=== PATIENT | female | born 1950 | race Caucasian/White ===

== ENCOUNTER → 2017-04-28 | Outpatient (CLI) | payer OTHER ==
[2017-04-28 15:15] LABS: ALBUMIN 3.5 gm/dl (3.4-5.0); ALT/SGPT 20 U/L (12-78); AST/SGOT 14 U/L (15-37); BLOOD UREA NITROGEN 25 mg/dl (7-18); CALCIUM 9.5 mg/dl (8.5-10.1); CARBON DIOXIDE 30 mmol/L (21-32); CREATININE 0.86 mg/dl (0.60-1.20); GLUCOSE 60 mg/dl (70-99); POTASSIUM 3.5 mmol/L (3.5-5.1); SODIUM 138 mmol/L (136-145)
[2017-04-28 15:25] LABS: ALKALINE PHOSPHATASE 126 U/L (45-117); CHOLESTEROL 130 mg/dl (0-200); LDL CHOLESTEROL CALCULATED 14 mg/dl; TOTAL PROTEIN 7.5 gm/dl (6.4-8.2)
[2017-04-29 05:57] LABS: HEMOGLOBIN A1C 9.8 % (4.5-5.6)
== END | disposition home or self-care (01) ==
LOC: C.LAB1850 12:17
PROVIDERS: ATTEND Internal Medicine Endocrinology, Diabetes & Metabolism
DX: E11.65 Type 2 diabetes mellitus with hyperglycemia (principal)

== ENCOUNTER 2017-07-04 06:14 | Inpatient (IN) | payer OTHER ==
[2017-05-09 11:13] VITALS: BMI 40.0
--- NOTE | 2017-05-09 11:56 | PAT Medication Instructions ---
Service Date May 09, 2017. Current Home Medication List Amlodipine (Norvasc), 5 MG PO QPM Atorvastatin (Lipitor), 10 MG PO for AM Celecoxib (CeleBREX), 100 MG PO QAM Cholecalciferol (Vitamin D3), 5,000 TAB PO QAM Duloxetine Hcl (Cymbalta), 60 MG PO QPM Hydrochlorothiazide (Hydrochlorothiazide), 25 MG PO QAM Ibuprofen (Advil), 800 MG PO PRN Insulin Glargine (Lantus), 40 UNITS SC QAM Insulin Glargine (Lantus), 20 SC QPM Losartan Potassium (Cozaar), 100 MG PO QPM Metformin Hcl (Glucophage), 1,000 MG PO BID Multivitamin (Multivitamin), 1 TAB PO QAM [Humalog], 15 UNITS SC TIDM Medication Instructions For Your Scheduled Surgery - Check with surgeon for instructions: Ibuprofen (Advil), 800 MG PO PRN Celecoxib (CeleBREX), 100 MG PO QAM - Hold the following medications 24 hours prior to surgery: Losartan Potassium (Cozaar), 100 MG PO QPM - Hold the following medications 48 hours prior to surgery: Metformin Hcl (Glucophage), 1,000 MG PO BID - Hold the following medications the morning of surgery: Cholecalciferol (Vitamin D3), 5,000 TAB PO QAMHydrochlorothiazide ( Hydrochlorothiazide), 25 MG PO QAM [Humalog], 15 UNITS SC TIDM Multivitamin (Multivitamin), 1 TAB PO QAM - Take the following medications the morning of surgery with a sip of water: Atorvastatin (Lipitor), 10 MG PO for AM - Take the following medications as scheduled the night before surgery: [Humalog], 15 UNITS SC TIDM Duloxetine Hcl (Cymbalta), 60 MG PO QPM Amlodipine (Norvasc), 5 MG PO QPM - For Insulin Dependent Diabetic patients: Test blood sugar A.M. of surgery. - If Blood sugar greater than 150, take half of your regular dose of: Insulin Glargine (Lantus), take 20 units - If Blood sugar less than 150, do not take any: Insulin Glargine (Lantus ) If you have any questions please call us at [phone] or [phone] or [phone]
[2017-05-09 13:02] LABS: BASO % 0.6 %; BASO ABS # 0.05 K/uL (0-0.2); EOS % 4.2 %; EOS ABS # 0.37 K/uL (0-0.5); HEMATOCRIT 38.1 % (37-47); IG# 0.04 K/uL (0.00-0.02); LYMPH % 18.2 %; LYMPH ABS # 1.59 K/uL (1.2-3.4); MEAN CELL VOLUME 80.2 fL (80-100); MEAN CORPUSCULAR HEMOGLOBIN 25.3 pg (25-34); MEAN CORPUSCULAR HGB CONC 31.5 g/dl (32-36); MEAN PLATELET VOLUME 10.3 fL (7.4-10.4); MONO % 8.9 %; MONO ABS # 0.78 K/uL (0.11-0.59); NEUT % 67.6 %; NEUT ABS # 5.89 K/uL (1.4-6.5); PLATELET COUNT 303 K/uL (130-400); RED CELL DISTRIBUTION WIDTH CV 15.5 % (11.5-14.5); RED CELL DISTRIBUTION WIDTH SD 45.3 fL (36.4-46.3); WHITE BLOOD COUNT 8.72 K/uL (4.8-10.8)
[~2017-07-04] VITALS: Ht 162.6 cm; Wt 105.8 kg
[2017-07-04] VITALS (9 sets, daily range): BP systolic 98–158; BP diastolic 57–72; PULSE 86–107; TEMP 36.5–37.2; O2SAT 93–100; Ht 162.6 cm; Wt 105.8 kg
[~2017-07-04 06:14] MED LIST: AMLO-110 PO; ATOR10TA82 PO; CEFAZOLIN 2000MG IV PUSH 15 ML IV SCH; CHOL1000 PO; CLB/200 PO; DULO60CA44 PO; HUMALOG SC; HYDR25TA5 PO; IBUP-1050 PO; INSDGI SC; LACTATED RINGER'S 1000ML 1,000 ML IV SCH; LOSA1TAB38 PO; METF-384 PO; MULT-506 PO; SECU1INJ INJ
[2017-07-04] MEDS ORDERED: PHENYLEPHRINE 100MCG/ML 5ML SYR IV PRN (06:30)
[2017-07-04] MEDS ORDERED: ATROPINE SULFATE 0.1 MG/ML 5ML SYR IV PRN (06:30)
[2017-07-04] MEDS ORDERED: FENTANYL CITRATE INJ 50 MCG/1 ML 2 ML VIAL IV PRN (06:30)
[2017-07-04] MEDS ORDERED: PROMETHAZINE HCL INJ 12.5 MG in SODIUM CHLORIDE 0.9% 50ML 50 ML IV PRN ×2 (06:30→11:30)
[2017-07-04] MEDS ORDERED: HYDROmorphone INJ 1 MG/ML SYR IV PRN (06:30)
[2017-07-04] MEDS ORDERED: EpHEDrine SULFATE INJ 50 MG/ML AMP IV PRN (06:30)
[2017-07-04] MEDS ORDERED: ONDANSETRON INJ 2 MG/ML 2 ML VIAL IV PRN ×2 (06:30→11:30)
[2017-07-04] MEDS ORDERED: LABETALOL HCL IV 5 MG/ML 20ML IV PRN (06:30)
[2017-07-04] MEDS ORDERED: MIDAZOLAM HCL 1 MG/ML 2ML VIAL ONE (06:43)
[2017-07-04] MEDS ORDERED: FENTANYL CITRATE INJ 50 MCG/1 ML 2 ML VIAL ONE ×5 (06:43→11:19)
[2017-07-04] MEDS ORDERED: ALBUMIN HUMAN 5% 12.5 GM/250 ML VIAL IV ONE (06:49)
[2017-07-04] MEDS ORDERED: BUPIVACAINE/EPINEPHRINE 0.5% MPF 1:200,000 30 ML VIAL ONE (06:58)
[2017-07-04] MEDS ORDERED: BACITRACIN 50000 UNIT VIAL ONE (06:58)
[2017-07-04] MEDS ORDERED: CLINDAMYCIN 600 MG/54 ML D5W IV ONE (07:39)
[2017-07-04] MEDS ORDERED: SCOPOLAMINE 1.5 MG TDSY TD ONE (07:39)
--- NOTE | 2017-07-04 07:40 | History and Physical ---
History & Physical Date Jul 04, 2017. Chief Complaint Back and leg pain History of Present Illness The patient is a 66 year old female with complaints of back and leg pain Additional History Hepatic Disease: No Endocrine Disorder: No Kidney Disease: No Hypertension: Yes Heart Disease: No Bleeding Tendencies: No Infectious Diseases: No Allergies Coded Allergies: Cefadroxil (Verified Allergy, Unknown, ITCHING HIVES, 07/04/17) Loperamide (Verified Allergy, Unknown, ITCHING HIVES, 07/04/17) Oxycodone (Verified Allergy, Unknown, "GOOFY", 07/04/17) Tetracycline (Verified Allergy, Unknown, UNKNOWN, 07/04/17) Home Medications Scheduled Amlodipine (Norvasc), 5 MG PO QPM Atorvastatin (Lipitor), 10 MG PO QAM Celecoxib (CeleBREX), 200 MG PO QAM Cholecalciferol (Vitamin D3), 5,000 TAB PO QAM Duloxetine Hcl (Cymbalta), 90 MG PO QPM Hydrochlorothiazide (Hydrochlorothiazide), 25 MG PO QAM Ibuprofen (Advil), 800 MG PO PRN Insulin Glargine (Lantus), 27 UNITS SC QAM Insulin Glargine (Lantus), 27 SC QPM Losartan Potassium (Cozaar), 100 MG PO QPM Metformin Hcl (Glucophage), 1,000 MG PO BID Multivitamin (Multivitamin), 1 TAB PO QAM Secukinumab (Cosentyx), 1 DOSE INJ MONTHLY [Humalog], UNITS SC TIDM Physical Examination Skin: warm/dry, no rash Eyes: normal inspection, EOMI, sclerae normal ENT: normal ENT inspection, pharynx normal Head: normocephalic, atraumatic Neck: supple, no adenopathy, trachea midline Respiratory/Chest: lungs clear, normal breath sounds, no respiratory distress Cardiovascular: regular rate, rhythm, no edema, no murmur Abdomen / GI: normal bowel sounds, non tender Back: normal inspection Extremities: normal inspection, normal range of motion Neurologic/Psych: no motor/sensory deficits, alert, normal reflexes, oriented x 3 Diagnosis Lumbar spinal stenosis Plan of Treatment L2-S1 decompression and fusion with possible iliac bolts
--- NOTE | 2017-07-04 07:40 | History & Physical Bridge Note ---
H&P Re-Evaluation Bridge Note: I have examined the patient, reviewed the History & Physical and in the interval since the performance of the History & Physical I have noted the following changes of clinical significance: No changes noted
[2017-07-04] MEDS ORDERED: HYDROmorphone INJ 2 MG/ML SYR/VIAL ONE ×4 (08:11→12:05)
[2017-07-04] MEDS ORDERED: EpHEDrine SULFATE 50MG/5ML SYR ONE ×2 (09:07→10:28)
[2017-07-04] MEDS ORDERED: PHENYLEPHRINE 100MCG/ML 5ML SYR ONE ×2 (09:07→10:28)
[2017-07-04] MEDS ORDERED: PHENYLEPHRINE HCL INJ 10 MG/ML VIAL ONE (09:12)
[2017-07-04] MEDS ORDERED: VOLUVEN IN NSS ONE (09:38)
[2017-07-04 09:53] LABS: HEMATOCRIT 25.7 % (37-47); HEMOGLOBIN 8.3 g/dL (12.0-16.0)
[2017-07-04] MEDS ORDERED: LIDOCAINE HCL 2% 2 ML VIAL (20MG/ML) ONE (10:28)
[2017-07-04] MEDS ORDERED: PROPOFOL IV EMULSION 10 MG/ML 20 ML VIAL IV ONE (10:28)
[2017-07-04] MEDS ORDERED: RANITIDINE HCL 25 MG/ML INJ ONE (10:28)
[2017-07-04] MEDS ORDERED: CALCIUM CHLORIDE 10% 10 ML SYR ONE (10:28)
[2017-07-04] MEDS ORDERED: DEXAMETHASONE SOD INJ 4 MG/ML VIAL ONE (10:28)
[2017-07-04] MEDS ORDERED: ONDANSETRON INJ 2 MG/ML 2 ML VIAL ONE ×2 (10:28→11:29)
[2017-07-04] MEDS ORDERED: FLOSEAL HEMOSTATIC MATRIX 10ML TOP ONE (11:10)
[2017-07-04 11:16] LABS: HEMATOCRIT 28.2 % (37-47); HEMOGLOBIN 9.2 g/dL (12.0-16.0)
[2017-07-04] MEDS ORDERED: SODIUM CHLORIDE 0.9% 1000ML 1,000 ML IV SCH (11:24)
--- NOTE | 2017-07-04 11:24 | [facility] Operative Report ---
Operative Report Operative Date Jul 04, 2017. Pre-Operative Diagnosis Lumbar Spinal Stenosis Post-Operative Diagnosis Same Procedure(s) Performed 1. Lumbar decompression medial facetectomies foraminotomies L2-3 L3-4 L4-5 L5-S1. #2 posterior spinal fusion L2-3 L3-4 L4-5 L5-S1. #3 bilateral SI joint fusion. #4 placement posterior segmental instrumentation L2-S1 with bilateral iliac bolts. #5 interbody fusion L3-4. #6 placement peek cage 11 x 26 mm at L3-4. #7 placement of infuse collagen sponge combined with master graft in the posterior lateral gutters and ostium bone graft in the interbody space.. #8 placement locally harvested morselized autograft in the posterior lateral gutters. Surgeon Dr. Neeraj Ladd Television Operator Surgeon(s) Shannan Schwarz PA-C Estimated Blood Loss 1750mL Findings Severe spinal stenosis Description of Procedure Patient was met with preoperatively case discussed all questions addressed. After informed consent obtained patient was taken to the operative suite underwent intubation and placed in a prone position on the Sai table on top of the Dilan frame. All bony prominences were well-padded the eyes inspected to ensure no external pressure placed upon them. This point the lumbar spine was prepped and draped in the normal sterile fashion. Sharp dissection with the assistance of Bovie cautery was performed down to and exposing the lamina and transverse processes of L2 L3-L4-L5 the sacral ala and the bilateral SI joints. From a caudal to cephalad fashion complete laminectomy of L5 L4 L3 and L2 was performed addressing severe lateral recess and foraminal stenosis. Pedicle screws were then placed in L2-L3-L4 L5-S1 levels as well as bilateral iliac bolts. Through a transforaminal approach on the right complete discectomy of L3-4 was performed the endplates created to subcortical bleeding bone and a 11 x 26 mm peek cage filled with osteopenia bone graft tapped in position. Probe size rods were then locked into place in the transverse processes of L2 L3-L4-L5 the sacral ala burred to subcortical bleeding bone. I also burred out to the bilateral SI joints and placed infuse collagen sponge, mass graft and SI joints posterior lateral gutters. Cross-link was locked into position. 15 round SOFIA drain inserted. Incision was then closed with 1 Vicryl in the fascia 2-0 Vicryl subcutaneously and 4-0 Monocryl for fast closure Steri- Strips sterile dressings placed. Patient weakened taken to PACU stable condition. Please note Shannan Shah was present throughout the entire procedure involved in patient positioning complex portions of the surgery and final skin closure. I attest to the content of the Intraoperative Record and any orders documented therein. Any exceptions are noted below.
--- NOTE | 2017-07-04 11:25 | DIAGNOSTIC IMAGING REPORT ---
LUMBAR SPINE, INTRAOPERATIVE FLUOROSCOPY HISTORY: L2-S1 decompression and fusion. FLUOROSCOPY TIME: 34 seconds. FINDINGS: Intraoperative fluoroscopy was provided for the lumbar spine. 4 fluoroscopic spot images were obtained. Posterior decompression and fusion from L2 through S1 with pedicle screws and rods. The hardware appears intact. There are also bilateral sacroiliac bolts. IMPRESSION: Fluoroscopy provided for a L2-S1 posterior decompression and fusion.. Electronically signed by: Víctor Camacho M.D. 07/04/2017 11:23 AM Dictated Date/Time: 07/04/2017 11:21 AM
[2017-07-04] MEDS ORDERED: GLYCOPYRROLATE INJ 0.2 MG/ML VIAL ONE (11:29)
[2017-07-04] MEDS ORDERED: NEOSTIGMINE METHYLSULFATE 1 MG/ML 10ML VIAL ONE (11:29)
[2017-07-04] MEDS ORDERED: ALUMINUM/MAGNESIUM SUSP 30 ML UDC PO PRN (11:30)
[2017-07-04] MEDS ORDERED: BISACODYL 10 MG SUPP PR PRN (11:30)
[2017-07-04] MEDS ORDERED: LORAZEPAM INJ 0.5 MG in SYRINGE 0 ML IV PRN (11:30)
[2017-07-04] MEDS ORDERED: LORAZEPAM 0.5 MG TAB PO PRN (11:30)
[2017-07-04] MEDS ORDERED: DO NOT ADMINISTER PNEUMOCOCCAL VACCINE PRN (11:30)
[2017-07-04] MEDS ORDERED: DO NOT ADMINISTER FLU VACCINE PRN (11:30)
[2017-07-04] MEDS ORDERED: SOD PHOSPHATE/SOD BIPHOSPHATE ENEMA 132 ML BTL PR PRN (11:30)
[2017-07-04] MEDS ORDERED: METOCLOPRAMIDE HCL INJ 5 MG/ML 2 ML VIAL IV PRN (11:30)
[2017-07-04] MEDS ORDERED: NALOXONE HCL 0.4 MG/1 ML VIAL/CARP IV PRN (11:30)
[2017-07-04] MEDS ORDERED: MAGNESIUM HYDROXIDE SUSP 30 ML UDC PO PRN (11:30)
[2017-07-04] MEDS ORDERED: hydrOXYzine HCL 25 MG TAB PO PRN (11:30)
[2017-07-04] MEDS ORDERED: FAMOTIDINE 20 MG TAB PO PRN (11:30)
[2017-07-04] MEDS ORDERED: ACETAMINOPHEN 500 MG TAB PO PRN (11:30)
[2017-07-04] MEDS ORDERED: ACETAMINOPHEN IV 100 ML IV PRN (11:30)
[2017-07-04] MEDS ORDERED: NovoLIN-R INSULIN PER UNIT CHARGE ONE ×2 (12:01→12:54)
[2017-07-04] MEDS ORDERED: HYDROmorphone HCL 0.5MG/ML 50 ML CASSETTE ONE (12:05)
[2017-07-04] MEDS ORDERED: ROCURONIUM BROMIDE 10 MG/ML 5 ML VIAL IV ONE (12:47)
--- NOTE | 2017-07-04 13:53 | Anesthesiology Progress Note ---
Anesthesia Post Op Note Date & Time Jul 04, 2017 at 13:50 Vital Signs Pain Intensity: 3 Vital Signs Past 12 Hours Date Time Temp Pulse Resp B/P (MAP) Pulse Ox O2 Delivery O2 Flow Rate FiO2 07/04/17 13:30 103 12 130/55 (90) 93 Nasal Cannula 4 Oxymask 07/04/17 13:07 105 16 18 13:07 105 16 95 18 13:06 138/55 07/04/17 13:02 103 17 18 13:02 103 17 97 18 13:01 142/55 07/04/17 12:57 105 15 100 18 12:57 104 15 07/04/17 12:56 141/62 07/04/17 12:52 103 16 07/04/17 12:52 103 16 99 18 12:51 138/64 18 12:47 101 13 07/04/17 12:47 101 13 95 07/04/17 12:46 137/63 07/04/17 12:42 104 12 07/04/17 12:42 104 12 98 18 12:41 143/62 18 12:40 36.8 103 16 143/62 (89) 98 Nasal Cannula 10 Oxymask 07/04/17 12:38 102 19 18 12:38 102 19 96 2/18 12:36 145/65 /18 12:33 100 14 18 12:33 103 14 100 18 12:31 146/63 2/18 12:28 100 10 98 18 12:28 100 10 18 12:27 96 8 97 07/04/18 12:27 99 8 /2/18 12:26 147/62 /2/18 12:22 101 15 2/18 12:22 101 15 99 /2/18 12:21 155/71 2/18 12:17 100 12 100 2/18 12:17 100 12 18 12:16 148/68 /2/18 12:13 131/65 /2/18 12:12 102 18 98 2/18 12:12 101 18 4/2/18 12:11 209/ 07/04/17 12:07 103 9 07/04/17 12:07 102 9 99 07/04/17 12:06 191/77 07/04/17 12:02 103 10 100 07/04/17 12:02 103 10 07/04/17 12:01 162/79 07/04/17 11:57 108 30 99 07/04/17 11:57 108 30 07/04/17 11:56 182/79 07/04/17 11:52 97 20 07/04/17 11:52 97 20 100 07/04/17 11:51 154/97 07/04/17 11:48 151/88 07/04/17 11:47 99 20 07/04/17 11:47 99 20 100 07/04/17 11:47 36.8 99 16 151/88 (107) 97 Oxymask 10 07/04/17 06:35 37 86 20 158/72 100 Room Air Notes Mental Status: alert / awake / arousable, participated in evaluation Pt Amnestic to Procedure: Yes Nausea / Vomiting: adequately controlled Pain: adequately controlled Airway Patency, RR, SpO2: stable & adequate BP & HR: stable & adequate Hydration State: stable & adequate Anesthetic Complications: no major complications apparent Pt doing well. VSS. BG elevated even after 12 units of regular insulin. Last BG= 329. Pt asymptomatic. A1c is 9.8%. Spoken to Dr. Frances, hospitalist group, who will be managing patient on the floor regarding her elevated glucose. Pt will be started on insulin drip on the floor.
[2017-07-04] MEDS: HYDROmorphone HCL 0.5MG/ML 50 ML CASSETTE IV PRN ×3 (14:04→23:07)
[2017-07-04] MEDS ORDERED: GLUCOSE 40% GEL 15 GM TUBE PO PRN (14:30)
[2017-07-04] MEDS ORDERED: DEXTROSE 50% 50 ML SYR IV PRN (14:30)
[2017-07-04] MEDS ORDERED: GLUCAGON FOR INJ 1 MG VIAL SQ PRN (14:30)
[2017-07-04] MEDS ORDERED: GLUCOSE 10 TABS/TUBE PO PRN (14:30)
[2017-07-04] MEDS ORDERED: PHARMACY GLYCEMIC MGMT CONSULT PRN (14:50)
[2017-07-04] MEDS ORDERED: INSULIN HUMAN REGULAR IV BOLUS 4 UNIT in SYRINGE 0 ML IV ONE (15:15)
--- NOTE | 2017-07-04 15:33 | Pharmacy Progress Note ---
Glycemic Control Intl Consult Date of Service Jul 04, 2017. Scope Glycemic Pharmacist consulted by Dr Frances on 07/04/17 for glycemic control and to write orders per [facility] inpatient glycemic control protocol Objective Weight (Kilograms): 105.800 Accuchecks BSG (last 24hrs): Test 07/04/17 06:36 07/04/17 11:56 07/04/17 12:50 07/04/17 13:26 Bedside Glucose 134 mg/dl (70-90) 319 mg/dl (70-90) 306 mg/dl (70-90) 320 mg/dl (70-90) Test 07/04/17 13:43 07/04/17 14:52 07/04/17 15:10 Bedside Glucose 329 mg/dl (70-90) 326 mg/dl (70-90) Laboratory Data (last 24hrs) Test 07/04/17 15:10 Recent Pertinent Medications Outpatient Anti-diabetic Regimen: * Lantus 27 units SQ BID * Humalog TIDM; CF 30, CR 10 with goal 100-150 mg/dL * Metformin 1000 mg PO BID Risk Factors for Insulin Resistance: * Steroids: Dexamethasone 12 mg IV in OR * Recent Surgery: POD #0 spinal decompression and fusion * Diet: T2DM Assessment & Plan ASSESSMENT: * 66 yr old T2DM female admitted for spinal decompression and fusion * Severe hyperglycemia both intra-op and post-op. Patient was given a total of 12 units of regular insulin while in OR, however BSG remained > 300. * Discussed with Hospitalist - agree to initiate IV insulin infusion for severe hyperglycemia in post-operative setting where tight glycemic control is desired. Will also continue Lantus (tonight's dose will be based on home basal dose + stress of 2). * I will utilize a fixed carb ratio of 4, rather than the carb ratio calculated by the insulin infusion PLAN FOR INPATIENT GLYCEMIC CONTROL: * Starting IV insulin infusion per severe stress protocol * Goal range: 110 - 140 mg/dL * Holding outpatient oral diabetes medications * Will resume metformin once evidence of adequate oral intake and stable renal function are present * Basal insulin * Lantus 66 units SQ with dinner x 1 * Further Lantus orders to be determined on 07/05 * Bolus nsulin * NOVOLOG per scale ACHS or Q6hrs while NPO * Goal Range: Low 110 mg/dL - High 140 mg/dL * Correction Factor: -- (per drip) mg/dL/unit * Nutritional / Prandial insulin per carb ratio of 1 unit per 4 grams CHO consumed * Please note that the plan above was derived based on current level of insulin resistance and hospital stress. These recommendations are appropriate for inpatient admission only. Plan of care upon discharge will need to be reassessed to avoid potential outpatient hypo/hyperglycemia. Thank you.
[2017-07-04] MEDS: INSULIN REGULAR 250 UNITS in SODIUM CHLORIDE 0.9% 250ML 250 ML IV SCH ×8 (15:41→22:54)
[2017-07-04] MEDS: SODIUM CHLORIDE 0.9% 1000ML 1,000 ML IV SCH ×2 (15:43→23:06)
[2017-07-04 16:11] LABS: CALCIUM 8.2 mg/dl (8.5-10.1); CREATININE 1.15 mg/dl (0.60-1.20); POTASSIUM 4.6 mmol/L (3.5-5.1)
[2017-07-04] MEDS: CLINDAMYCIN IV 600 MG in DEXTROSE 5% 50ML 50 ML IV SCH ×2 (16:22→23:38)
--- NOTE | 2017-07-04 16:43 | History and Physical ---
History General Date of Service: Jul 04, 2017. Stated Complaint: Spinal Stenosis History of Present Illness The patient is a 66 year old female who presents to [facility] with complaints of Spinal Stenosis. The patient's primary care provider is Glenn Hansen II MD. Patient is a 66-year-old female with a history of diabetes type 1, hypertension , dyslipidemia, presenting with Status post lumbar spine decompression by Dr. Ladd on July 04, 2017. Postoperatively, patient was noted to be hyperglycemic in the 300s. She was given regular insulin total of 12 units with no improvement. Apparently the patient was asymptomatic according to anesthesia service. Therefore hospitalist service consulted. On exam, the patient was in her room at 317. She said she is sleepy but otherwise feels fine. Denies nausea vomiting, headache, chest pain, shortness of breath. No other symptoms. Review of Systems Constitutional- no fever; no weight loss Eyes- no acute visual changes ENT- no sinus drainage; no pharyngitis Pulmonary- no cough, no wheezing, no shortness of breath Cardiac- no chest pain, no palpitations, no orthopnea, no dependent edema GI- no nausea, no vomiting, no diarrhea, no melena, no hematochezia - no dysuria, no hematuria Musculoskeletal- no arthralgias, no myalgias Derm- no rashes, no new skin lesions, no changing skin lesions Hematologic- no unusual bruising, no unusual bleeding Lymphatics- no adenopathy Endocrine- no polyuria or polydipsia; no heat or cold intolerance Neuro- no headaches, no focal neurologic symptoms Psych- no anxiety, no depression Family History Noncontributory Social History Smoking Status: Never Smoker Alcohol: occasionally Drug Use: none Marital Status: Housing Status: lives with family Occupation Status: retired History of MDRO History of MDRO: No Allergies Coded Allergies: Cefadroxil (Verified Allergy, Unknown, ITCHING HIVES, 07/04/17) Loperamide (Verified Allergy, Unknown, ITCHING HIVES, 07/04/17) Oxycodone (Verified Allergy, Unknown, "GOOFY", 07/04/17) Tetracycline (Verified Allergy, Unknown, UNKNOWN, 07/04/17) Current Home Medications Reported Home Medications Medications Dose Route/Sig Max Daily Dose Days Date Category Dose Instructions Cosentyx (Secukinumab) 150 Mg/Ml Inj 1 Dose INJ MONTHLY 05/09/17 Reported Vitamin D3 (Cholecalciferol) 1,000 Unit Tab 5,000 Tab PO QAM 90 05/09/17 Reported Multivitamin (Multivitamins) Tab 1 Tab PO QAM 05/09/17 Reported Advil (Ibuprofen) 200 Mg Tab 800 Mg PO PRN 05/09/17 Reported CeleBREX (Celecoxib) 200 Mg Cap 200 Mg PO QAM 05/09/17 Reported [Humalog] Units SC TIDM 05/09/17 Reported sliding scale TID Lantus (Insulin Glargine) 100 Unit/Ml Inj 27 SC QPM 05/09/17 Reported Lantus (Insulin Glargine) 100 Unit/Ml Inj 27 Units SC QAM 05/09/17 Reported Hydrochlorothiazide 25 Mg Tab 25 Mg PO QAM 05/09/17 Reported Cymbalta (Duloxetine Hcl) 60 Mg Cap 90 Mg PO QPM 05/09/17 Reported Cozaar (Losartan Potassium) 100 Mg Tab 100 Mg PO QPM 05/09/17 Reported Lipitor (Atorvastatin Calcium) 10 Mg Tab 10 Mg PO QAM 05/09/17 Reported Norvasc (Amlodipine Besylate) 5 Mg Tab 5 Mg PO QPM 05/09/17 Reported Glucophage (Metformin Hcl) 1,000 Mg Tab 1,000 Mg PO BID 05/09/17 Reported Physical Exam Date Time Temp Pulse Resp B/P (MAP) Pulse Ox O2 Delivery O2 Flow Rate FiO2 07/04/17 16:05 36.7 101 18 123/67 (85) 99 Nasal Cannula 4.0 07/04/17 15:07 37.2 107 19 113/63 (80) 96 Nasal Cannula 4.0 07/04/17 14:30 37.0 102 18 118/62 (80) 99 Nasal Cannula 4.0 07/04/17 14:05 99 Nasal Cannula 4.0 07/04/17 14:05 36.8 101 16 114/57 (76) 99 Nasal Cannula 4.0 07/04/17 14:05 Nasal Cannula 4.0 07/04/17 13:53 103 11 07/04/17 13:53 103 11 94 07/04/17 13:48 105 14 07/04/17 13:48 105 14 97 07/04/17 13:46 133/59 4/2/18 13:43 104 17 96 4/2/18 13:43 104 17 4/2/18 13:38 103 15 4/2/18 13:38 103 15 94 4/2/18 13:36 105/56 4/2/18 13:33 105 16 94 4/2/18 13:33 105 16 4/2/18 13:31 130/55 4/2/18 13:30 103 12 130/55 (90) 93 Nasal Cannula 4 Oxymask 4/2/18 13:28 104 14 96 4/2/18 13:28 104 14 4/2/18 13:26 130/51 4/2/18 13:23 110 14 4/2/18 13:23 109 14 97 4/2/18 13:21 122/57 4/2/18 13:18 102 9 4/2/18 13:18 102 9 95 4/2/18 13:16 117/58 4/2/18 13:13 103 11 4/2/18 13:13 103 11 94 4/2/18 13:11 118/52 4/2/18 13:08 107 12 98 4/2/18 13:08 107 12 4/2/18 13:07 105 16 4/2/18 13:07 105 16 95 4/2/18 13:06 138/55 4/2/18 13:02 103 17 4/2/18 13:02 103 17 97 4/2/18 13:01 142/55 4/2/18 12:57 105 15 100 4/2/18 12:57 104 15 4/2/18 12:56 141/62 4/2/18 12:52 103 16 4/2/18 12:52 103 16 99 4/2/18 12:51 138/64 4/2/18 12:47 101 13 4/2/18 12:47 101 13 95 4/2/18 12:46 137/63 4/2/18 12:42 104 12 4/2/18 12:42 104 12 98 4/2/18 12:41 143/62 4/2/18 12:40 36.8 103 16 143/62 (89) 98 Nasal Cannula 10 Oxymask 4/2/18 12:38 102 19 4/2/18 12:38 102 19 96 4/2/18 12:36 145/65 4/2/18 12:33 100 14 07/04/17 12:33 103 14 100 07/04/17 12:31 146/63 07/04/17 12:28 100 10 98 07/04/17 12:28 100 10 07/04/17 12:27 96 8 97 07/04/17 12:27 99 8 07/04/17 12:26 147/62 07/04/17 12:22 101 15 07/04/17 12:22 101 15 99 07/04/17 12:21 155/71 07/04/17 12:17 100 12 100 07/04/17 12:17 100 12 07/04/17 12:16 148/68 07/04/17 12:13 131/65 07/04/17 12:12 102 18 98 07/04/17 12:12 101 18 07/04/17 12:11 209/ 07/04/17 12:07 103 9 07/04/17 12:07 102 9 99 07/04/17 12:06 191/77 07/04/17 12:02 103 10 100 07/04/17 12:02 103 10 07/04/17 12:01 162/79 07/04/17 11:57 108 30 99 07/04/17 11:57 108 30 07/04/17 11:56 182/79 07/04/17 11:52 97 20 07/04/17 11:52 97 20 100 07/04/17 11:51 154/97 07/04/17 11:48 151/88 07/04/17 11:47 99 20 07/04/17 11:47 99 20 100 07/04/17 11:47 36.8 99 16 151/88 (107) 97 Oxymask 10 07/04/17 06:35 37 86 20 158/72 100 Room Air Weight in Kilograms: 105.800 General-oriented 3, speaking in sentences, not in distress Head- atraumatic Eyes- PERRL, EOMI, anicteric ENT- oropharynx clear Neck- supple, no JVD, no adenopathy, no thyromegaly; carotids +2/2 Lungs- clear to auscultation bilaterally Heart- regular rhythm; no murmur, normal rate Abdomen- normal bowel sounds, soft, nontender, nondistended Extremities- no pretibial edema, no calf tenderness; peripheral pulses intact Neuro- alert, oriented x 3; no gross focal neuro deficits Skin- warm & dry Diagnostics Laboratory Results Results Past 24 Hours Test 07/04/17 06:36 07/04/17 06:51 07/04/17 09:45 07/04/17 11:00 Range/Units Bedside Glucose 134 70-90 mg/dl Hepatitis C Antibody Screen NEG NEG Hemoglobin 8.3 9.2 12.0-16.0 g/dL Hematocrit 25.7 28.2 37-47 % Test 07/04/17 11:56 07/04/17 12:50 07/04/17 13:26 07/04/17 13:43 Range/Units Bedside Glucose 319 306 320 329 70-90 mg/dl Test 07/04/17 14:52 07/04/17 15:20 Range/Units Bedside Glucose 326 70-90 mg/dl Sodium Level 139 136-145 mmol/L Potassium Level 4.6 3.5-5.1 mmol/L Chloride Level 107 98-107 mmol/L Carbon Dioxide Level 22 21-32 mmol/L Anion Gap 10.0 3-11 mmol/L Blood Urea Nitrogen 21 7-18 mg/dl Creatinine 1.15 0.60-1.20 mg/dl Est Creatinine Clear Calc Drug Dose 57.9 ml/min Estimated GFR () 57.8 Estimated GFR (Non- 49.9 BUN/Creatinine Ratio 18.6 10-20 Random Glucose 323 70-99 mg/dl Calcium Level 8.2 8.5-10.1 mg/dl Beta-Hydroxybutyric Acid 0.88 0.2-2.81 mg/dL Impression Assessment and Plan Patient is a 66-year-old female with a history of diabetes type 1, hypertension , dyslipidemia, presenting with Status post lumbar spine decompression by Dr. Ladd on July 04, 2017. Status post lumbar decompression surgery by Dr. Ladd Postop day #0 Positive hyperglycemia, management noted below Pain management and DVT prophylaxis per orthopedic service Given 3 units of packed RBCs at the OR, Thank you for this consultation. Hyperglycemia likely secondary to dexamethasone Type 1 diabetes Usually on metformin 1000 mg twice daily and Lantus 27 units twice daily Blood glucose readings in the 300s postoperatively We will check PRP We will start insulin drip, consult pharmacy glycemic control for assistance Hypertension Usually takes losartan 100 mg daily, amlodipine 5 mg daily, hydrochlorothiazide 25 mg daily Blood pressure marginal Hold blood pressure medications at this time We will order as needed clonidine Reevaluate blood pressure tomorrow, resume amlodipine first if needed We will follow the patient with you during their hospital stay. You can reach a [facility] via pager @ .Thank you for this consultation. Advanced Directives Existing Living Will: No Existing Power of Pot Pusher: No
[2017-07-04] MEDS ORDERED: INSULIN GLARGINE SOLOSTAR 100 UNITS/ML 3 ML PEN SC SCH ×2 (17:15)
[2017-07-04] MEDS: INSULIN ASPART 100 UNITS/ML 3 ML PEN SC SCH ×2 (18:09→21:00)
[2017-07-04] MEDS ORDERED: AMLODIPINE BESYLATE 5 MG TAB PO SCH (21:00)
[2017-07-04] MEDS ORDERED: LOSARTAN POTASSIUM 50 MG TAB PO SCH (21:00)
[2017-07-04] MEDS: DOCUSATE SODIUM/SENNA 50/8.6MG TAB PO SCH (21:35)
[2017-07-04] MEDS: DULOXETINE (CYMBALTA) 30 MG CAP PO SCH (21:36)
[2017-07-05] MEDS: INSULIN REGULAR 250 UNITS in SODIUM CHLORIDE 0.9% 250ML 250 ML IV SCH ×2 (00:54→05:50)
[2017-07-05 03:10] VITALS: BP 118/69; PULSE 96; TEMP 36.5; O2SAT 98
[2017-07-05 05:55] LABS: BASO % 0.1 %; BASO ABS # 0.01 K/uL (0-0.2); HEMATOCRIT 27.8 % (37-47); HEMOGLOBIN 8.8 g/dL (12.0-16.0); IG# 0.08 K/uL (0.00-0.02); LYMPH % 6.2 %; LYMPH ABS # 1.22 K/uL (1.2-3.4); MEAN CELL VOLUME 82.2 fL (80-100); MEAN CORPUSCULAR HGB CONC 31.7 g/dl (32-36); MEAN PLATELET VOLUME 9.3 fL (7.4-10.4); MONO % 11.1 %; MONO ABS # 2.17 K/uL (0.11-0.59); NEUT % 82.2 %; NEUT ABS # 16.07 K/uL (1.4-6.5); PLATELET COUNT 200 K/uL (130-400); RED CELL DISTRIBUTION WIDTH CV 16.6 % (11.5-14.5); RED CELL DISTRIBUTION WIDTH SD 49.8 fL (36.4-46.3); WHITE BLOOD COUNT 19.55 K/uL (4.8-10.8)
[2017-07-05] MEDS ORDERED: DC PCA SCH (06:00)
[2017-07-05] MEDS ORDERED: NALOXONE HCL 0.4 MG/1 ML VIAL/CARP IV PRN (06:00)
[2017-07-05] MEDS ORDERED: HYDROmorphone INJ 2 MG/ML SYR/VIAL IV PRN (06:00)
[2017-07-05] MEDS ORDERED: HYDROmorphone INJ 0.5 MG/0.5 ML SYR IV PRN (06:00)
[2017-07-05 06:30] LABS: CREATININE 1.24 mg/dl (0.60-1.20); POTASSIUM 5.6 mmol/L (3.5-5.1)
[2017-07-05 06:41] VITALS: BP 118/69; PULSE 98; TEMP 36.5; O2SAT 96
--- NOTE | 2017-07-05 07:02 | Clinical Documentation Query ---
CLINICAL DOCUMENTATION QUERY QUERY 1 OF 2 66 yo female admitted with spinal stenosis and s/p fusion. Hgb was 12.0 prior to admission and decreased to 8.3 post surgery. Patient received 3 units of PRBCs. Estimated blood loss from surgery was 1750. In your clinical opinion is this patient being managed for: ( X) Acute blood-loss anemia ( ) Complication of surgery due to post procedural hemorrhage ( ) Not Agree ( ) Other explanation of clinical findings (Please Explain) ( ) Unable to determine (Please Define) ( ) Need to Discuss The medical record reflects the following clinical findings, treatment, and risk factors. Clinical Indicators: As above Treatment: Transfuse 3 units PRBCs, serial H&H Risk Factors: S/P surgical intervention QUERY 2 OF 2 Patient's pre-surgery creatinine level was 0.86 and is currently 1.24. GFR range 70.9 trending down to 45.5. In your clinical opinion is this patient being managed for: ( ) Acute kidney failure ( X) Not Agree ( ) Other explanation of clinical findings (Please Explain) ( ) Unable to determine (Please Define) ( ) Need to Discuss The medical record reflects the following clinical findings, treatment, and risk factors. Clinical Indicators: As above Treatment: IV hydration, serial PRPs Risk Factors: S/P surgical intervention, DM, HTN Please clarify and document your clinical opinion in the progress notes and discharge summary. Terms such as "probable", "suspected", "likely", "questionable", "possible", or "still to be ruled out" are acceptable. IF IN AGREEMENT, YOU MUST DOCUMENT ABOVE DIAGNOSTIC STATEMENT IN DAILY PROGRESS NOTES AND DISCHARGE SUMMARY. This document is not part of the patient's record. Thank You, Juliet Alejandre RN [phone]
[2017-07-05] MEDS: HYDROCODONE/ACETAMIN 5/325MG TAB PO PRN ×2 (08:07→12:41)
[2017-07-05] MEDS: ATORVASTATIN 10 MG TAB PO SCH (08:45)
[2017-07-05] MEDS: INSULIN ASPART 100 UNITS/ML 3 ML PEN SC SCH ×4 (08:48→21:18)
[2017-07-05] MEDS: INSULIN GLARGINE SOLOSTAR 100 UNITS/ML 3 ML PEN SC SCH ×2 (08:49→21:19)
[2017-07-05] MEDS ORDERED: HYDROCHLOROTHIAZIDE 25 MG TAB PO SCH (09:00)
[2017-07-05] MEDS ORDERED: NURSING VERBAL MED ORDER ONE (09:30)
--- NOTE | 2017-07-05 09:49 | Pharmacy Progress Note ---
Pharmacy Glycemic Short Note 2 Date of Service Jul 05, 2017. OUTPATIENT ANTIDIABETIC REGIMEN: * Lantus 27 units SQ BID * Metoformin 1,000mg PO BIDM * Humalog per parameters * CF = 30mg/dl/unit; CR per 1 unit for every 10g CHO consumed ASSESSMENT: * POD#1 s/p Lumbar spinal surgery. Pt with severe hyperglycemia pre-op, intra-op , and post op secondary to omitting basal insulin prior surgery, holding PO antidiabetic agents, and dexamethasone intraop. * Pt received stressed outpatient basal insulin dosing immediately post-op with initiation of IV insulin infusion. Drip ran at 2.2-5.6 units/hr. Hyperglycemia resolved overnight. BSGs down to [id number] over the past few hours. * Pt meets criteria to stop IV insulin infusion and continue with SQ basal bolus monotherapy. * Will restart outpatient dosing since patient has well controlled diabetes on outpatient regimen per recent A1c = 7% 07/05/17 * Likely, the hyperglycemic effects of dexamethasone are diminishing at this point * Pharmacy to continue to titrate insulin doses based on BSG trends * Scr bumped up from 1.15 --> 1.24 mg/dl. Ordinarily would resume metformin POD# 1 when PO intake adequate, but, since Scr increased will hold off on restarting today. PLAN FOR INPATIENT GLYCEMIC CONTROL: * Hold outpatient oral diabetes medications * Basal insulin * Lantus 27 units SQ BID * Bolus insulin * NovoLog per scale ACHS or Q6hrs while NPO * Goal Range: Low 110 mg/dL - High 140 mg/dL * Correction Factor: 15 mg/dL/unit * Nutritional / Prandial insulin per carb ratio of 1 unit per 5 grams CHO consumed PLAN FOR DISCHARGE: * A1c = 7% on 07/05/17 * No changes needed to outpatient regimen. No needs identified as patient: Performs self-care for management of diabetes Knows how to check her BSG Knows what to do for High/Low BS * Essential to maintain BSG <150 mg/dl post-operatively to help prevent post- op complications.
[2017-07-05 10:55] VITALS: BP 101/52; PULSE 65; TEMP 37; O2SAT 91
--- NOTE | 2017-07-05 12:37 | Progress Note ---
Progress Note Date of Service Jul 05, 2017. Progress Note Patient's back pain is controlled. Her leg symptoms are improved. She is tolerating physical therapy. On exam she is sitting up in bed. She has excellent strength testing. She appears very comfortable. Assessment status post multilevel lumbar decompression fusion. Plan at this time we will continue to advance her physical therapy advance her bowel regiment anticipate discharge towards the latter half of this week.
[2017-07-05] MEDS ORDERED: HYDR-5688 PO (12:40)
--- NOTE | 2017-07-05 12:41 | Discharge Instructions ---
Discharge Instructions Date of Service Jul 05, 2017. Admission Reason for Admission: Spinal Stenosis Discharge Discharge Diagnosis / Problem: lumbar stenosis Discharge Goals Goal(s): Improve function Activity Recommendations Activity Limitations: per Instructions/Follow-up section . Instructions / Follow-Up Instructions / Follow-Up ACTIVITY RECOMMENDATIONS: SELF CARE INSTRUCTIONS AFTER THORACIC/LUMBAR FUSIONS 1. You may walk to your tolerance. It is good exercise for your legs and back. Expect some back and intermittent leg aches and pains. 2. You may perform "counter-top" level activities (make a sandwich, gianluca with a project, etc.). 3. No bending or lifting of more than 10 pounds or back twisting of any nature (roll like a log when turning in bed). 4. You may ride in a car for 20-30 minutes at a time. No driving until after your first visit with your doctor. 5. Frequent changes of position and restricting sitting to 30 minutes at a time will help limit the amount of back spasms and stiffness you may experience. 6. You may discontinue the use of ambulatory aids (cane, crutches, etc.) once your strength and confidence allow. 7. You may cabin worker the shower and let water strike your incision when you arrive home at least once daily. Do not take a tub bath, sit in a hot tub or go into a swimming pool until after your first recheck in the office. SPECIAL CARE INSTRUCTIONS: VERY IMPORTANT TO READ AND REVIEW A. Your surgical incision has been closed with a cosmetic suture under the skin that will dissolve in about 6 weeks. In 14 days, you can use a pair of clean scissors and cut the suture that is left outside of the skin at the ends of your incision. 1. The small skin tapes can be removed 7 days after surgery if they have not fallen off by that point. 2. You may keep the wound open to air as much as possible to promote healing after post-op day number 5 unless told otherwise by your doctor. 3. If you think the wound looks like it is becoming infected (redness or worsening drainage) and/or you are experiencing fever, chill or worsening back pain and muscle spasms, contact the office so that we may evaluate you as soon as possible. B. Complications are uncommon, but please contact us if you have any signs or symptoms of: 1. wound infection (fever higher than 102.5 degrees F, redness, separation of wound, drainage, or increasing pain from the incision) 2. blood clots in legs (pain, swelling, redness and warmth in legs) 3. urinary tract infection (fever higher than 102.5 degrees F, burning upon urination or increased frequency of urination) 4. nerve problems (inability to walk on your toes or heels, numbness, loss of bowel or bladder control) 5. any other symptoms that concern you C. Please call the office at if you have any concerns or questions about your operation or recovery. D. No smoking! Smoking drastically decreases the chance of a solid fusion. E. Do not take any anti-inflammatory medications (Indocin, Advil, Motrin, Aspirin, Naprosyn, etc.) as these may inhibit the chance of a solid fusion. Tylenol is okay to take for pain. MANAGING PAIN AFTER SPINAL SURGERY 1. Narcotic medication is intended for short-term use and will be provided for surgical pain. Surgical pain usually lasts for a period of 4-6 weeks. Narcotic medication includes Percocet, Vicodin, Darvocet, Tylenol #3 or Lortab. 2. Longer-term pain is more appropriately treated with non-narcotic medication such as Tylenol ES. 3. Muscle spasm is not appropriately treated with narcotics. Muscle relaxers such as Soma, Flexeril or Skelaxin can be used along with Tylenol ES. 4. Remember that we all live with some "aches and pains". This is not unusual or uncommon after an injury or as we get older. a. Back pain is expected and may include muscle spasms for 4 to 6 weeks after surgery. The pain should gradually improve. If the pain worsens for no apparent reason, please contact the office. b. Intermittent leg pain may also be experienced and should not be concerned about unless it worsens for no apparent reason. If so, please contact the office. 5. We will provide appropriate medication within the normal guidelines of their prescribed use. We will also be very cautious and aware of potential abuse and extended duration of patients' medication needs. a. Pain medications are for your comfort and to assist with sleep and rest so that the tissue can heal. They are not provided in order to return to normal activity and should not be used through the day. To do so or worsening pain at night can result from ongoing tissue damage and development of tolerance to the prescribed medicine. 6. Please allow 2-3 days to process refills. Prescriptions will not be mailed but must be picked up at the office. FOLLOW UP VISIT: Keep your scheduled follow-up appointment. Any questions, please call the office at . Current Hospital Diet Patient's current hospital diet: Diabetes Type 2 Diet Discharge Diet Recommended Diet: Regular Diet Procedures Procedures Performed: L2-S1 Decompression, Posterior Spinal Fusion, Instrumentation, Iliac Bolts, Application of Interbody Cage at L3-L4, Infuse, Application of Osteoamp Pending Studies Studies pending at discharge: no Laboratory Results Hemoglobin A1c Test 07/05/17 05:31 Range/Units Estimated Average Glucose 154 mg/dl Hemoglobin A1c 7.0 H 4.5-5.6 % Lipid Panel Test 04/28/17 12:29 Range/Units Triglycerides Level 69 0-150 mg/dl Cholesterol Level 130 0-200 mg/dl HDL Cholesterol 102 mg/dl Cholesterol/HDL Ratio 1.3 LDL Cholesterol, Calculated 14 mg/dl Medical Emergencies . Who to Call and When: Medical Emergencies: If at any time you feel your situation is an emergency, please call 911 immediately. . Non-Emergent Contact Non-Emergency issues call your: Primary Care Provider . "Provider Documentation" section prepared by Neeraj Ladd. .
[2017-07-05 15:16] VITALS: BP 136/67; PULSE 109; TEMP 36.6; O2SAT 95
[2017-07-05] MEDS ORDERED: NURSING DECISION MEDICATION ORDER SCH (16:00)
[2017-07-05] MEDS ORDERED: COUGH DROP (SUGAR FREE) LOZ 24 LOZ/1 BOX LOZ PRN (16:45)
--- NOTE | 2017-07-05 18:41 | Progress Note ---
Medicine Progress Note Date & Time of Visit: Jul 05, 2017 at 18:34. Subjective seen resting in bed, comfortable states she feels ok overall back pain increased today, but controlled well with medications no chest pain, dyspnea, palpitations, dizziness no other symptoms Objective Last 8 Hrs Date Time Temp Pulse Resp B/P (MAP) Pulse Ox O2 Delivery O2 Flow Rate FiO2 07/05/17 15:21 Room Air 07/05/17 15:16 36.6 109 19 136/67 (90) 95 Room Air 07/05/17 10:55 37.0 65 16 101/52 (68) 91 Room Air Physical Exam: General- oriented x 3, not in distress, speaks in sentences with no effort Eyes anicteric ENT- oropharynx clear Neck- supple, no JVD Lungs- clear breath sounds bilaterally Heart- regular rhythm; no murmur, normal rate Abdomen- normal bowel sounds, soft, nontender Extremities- no pretibial edema, no calf tenderness; peripheral pulses intact Neuro- alert, oriented x 3; no gross focal deficits Skin- warm & dry Laboratory Results: Last 24 Hours Test 07/04/17 19:06 07/04/17 20:16 07/04/17 21:21 07/04/17 22:47 Bedside Glucose 204 mg/dl 191 mg/dl 152 mg/dl 124 mg/dl Test 07/04/17 23:49 07/05/17 00:50 07/05/17 01:51 07/05/17 02:50 Bedside Glucose 96 mg/dl 114 mg/dl 120 mg/dl 121 mg/dl Test 07/05/17 03:46 07/05/17 05:31 07/05/17 05:48 07/05/17 06:44 Bedside Glucose 112 mg/dl 98 mg/dl 92 mg/dl White Blood Count 19.55 K/uL Red Blood Count 3.38 M/uL Hemoglobin 8.8 g/dL Hematocrit 27.8 % Mean Corpuscular Volume 82.2 fL Mean Corpuscular Hemoglobin 26.0 pg Mean Corpuscular Hemoglobin Concent 31.7 g/dl Platelet Count 200 K/uL Mean Platelet Volume 9.3 fL Neutrophils (%) (Auto) 82.2 % Lymphocytes (%) (Auto) 6.2 % Monocytes (%) (Auto) 11.1 % Eosinophils (%) (Auto) 0.0 % Basophils (%) (Auto) 0.1 % Neutrophils # (Auto) 16.07 K/uL Lymphocytes # (Auto) 1.22 K/uL Monocytes # (Auto) 2.17 K/uL Eosinophils # (Auto) 0.00 K/uL Basophils # (Auto) 0.01 K/uL RDW Standard Deviation 49.8 fL RDW Coefficient of Variation 16.6 % Immature Granulocyte % (Auto) 0.4 % Immature Granulocyte # (Auto) 0.08 K/uL Red Blood Cell Morphology Unremarkable Sodium Level 136 mmol/L Potassium Level 5.6 mmol/L Chloride Level 107 mmol/L Carbon Dioxide Level 25 mmol/L Anion Gap 4.0 mmol/L Blood Urea Nitrogen 27 mg/dl Creatinine 1.24 mg/dl Est Creatinine Clear Calc Drug Dose 53.7 ml/min Estimated GFR () 52.8 Estimated GFR (Non- 45.5 BUN/Creatinine Ratio 21.8 Random Glucose 95 mg/dl Estimated Average Glucose 154 mg/dl Hemoglobin A1c 7.0 % Calcium Level 8.0 mg/dl Test 07/05/17 08:14 07/05/17 09:55 07/05/17 11:58 07/05/17 17:20 Bedside Glucose 94 mg/dl 163 mg/dl 102 mg/dl Potassium Level 4.8 mmol/L Assessment & Plan Patient is a 66-year-old female with a history of diabetes type 1, hypertension , dyslipidemia, presenting with Status post lumbar spine decompression by Dr. Ladd on July 04, 2017. Status post lumbar decompression surgery by Dr. Ladd Postop day #1 stable overall Pain management and DVT prophylaxis per orthopedic service Hyperglycemia likely secondary to dexamethasone, Resolved Type 1 diabetes Usually on metformin 1000 mg twice daily and Lantus 27 units twice daily Insulin drip discontinued now on Lantus and ISS monitor Hypertension Usually takes losartan 100 mg daily, amlodipine 5 mg daily, hydrochlorothiazide 25 mg daily will resume Amlodipine today hold Losartan and HCTZ as patient's crea is mildly elevated and to prevent hypotension Anemia, likely from Acute Blood Loss from Surgery already given 3 units pRBC Hg stable at ~8-9 monitor We will follow the patient with you during their hospital stay. You can reach a member of the [facility]ist Team 25/10 via pager @ .Thank you for this consultation. Current Inpatient Medications: Current Inpatient Medications Medications (Trade) Dose Ordered Sig/Tamar Route Start Time Stop Time Status Last Admin Dose Admin Promethazine HCl 12.5 mg/Sodium Chloride 50.5 ml @ 202 mls/hr Q6H PRN IV 07/04/17 11:30 08/03/17 11:29 Ondansetron HCl (Zofran Inj) 4 mg Q6H PRN IV 07/04/17 11:30 08/03/17 11:29 Metoclopramide HCl (Reglan Inj) 10 mg Q6H PRN IV 07/04/17 11:30 08/03/17 11:29 Lorazepam (Ativan Tab) 0.5 mg Q8H PRN PO 07/04/17 11:30 08/03/17 11:29 Lorazepam 0.5 mg/ Syringe 0.25 ml @ 1 mls/min Q8H PRN IV 07/04/17 11:30 08/03/17 11:29 Pneumococcal Polysaccharide Vaccine 1 ea PRN PRN N/A 07/04/17 11:30 08/03/17 11:29 Influenza Virus Vacc Triv Types A&B 1 ea PRN PRN N/A 07/04/17 11:30 08/03/17 11:29 Polyethylene (Miralax Powder Packet) 17 gm Q6 PO 07/06/17 06:00 08/05/17 05:59 Bisacodyl (Dulcolax Supp) 10 mg DAILY PRN NE 07/04/17 11:30 08/03/17 11:29 Magnesium Hydroxide (Milk Of Magnesia Susp) 30 ml DAILY PRN PO 07/04/17 11:30 08/03/17 11:29 Hydromorphone HCl (Dilaudid Inj) 0.5 mg Q3H PRN IV 07/05/17 06:00 07/19/17 05:59 07/05/17 14:48 0.5 MG Acetaminophen/ Hydrocodone Bitart ([place] 5/325 Tab) 1-2 tabs prn moder... Q4H PRN PO 07/05/17 06:00 07/19/17 05:59 07/05/17 12:41 2 TAB Acetaminophen (Tylenol Tab) 1,000 mg Q8H PRN PO 07/04/17 11:30 08/03/17 11:29 Acetaminophen 100 ml @ 400 mls/hr Q8H PRN IV 07/04/17 11:30 08/03/17 11:29 Naloxone HCl (Narcan Inj) 0.1 mg Q5M PRN IV 07/05/17 06:00 08/04/17 05:59 Senna/Docusate Sodium (Senokot S Tab) 2 tab HS PO 07/04/17 21:00 08/03/17 20:59 07/04/17 21:35 2 TAB Sodium Biphosphate/ Sodium Phosphate (Fleet Enema) 132 ml ONE PRN NE 07/04/17 11:30 08/03/17 11:29 Hydroxyzine HCl (Vistaril Tab) 25 mg Q8H PRN PO 07/04/17 11:30 08/03/17 11:29 Al Hydroxide/Mg Hydroxide (Maalox Susp) 30 ml Q6H PRN PO 07/04/17 11:30 08/03/17 11:29 Famotidine (Pepcid Tab) 20 mg Q12 PRN PO 07/04/17 11:30 08/03/17 11:29 Diphenhydramine HCl (Benadryl Cap) 25 mg Q6H PRN PO 07/04/17 11:30 08/03/17 11:29 Atorvastatin Calcium (Lipitor Tab) 10 mg QAM PO 07/05/17 09:00 08/04/17 08:59 07/05/17 08:45 10 MG Duloxetine HCl (Cymbalta Cap) 90 mg QPM PO 07/04/17 21:00 08/03/17 20:59 07/04/17 21:36 90 MG Hydromorphone HCl (Dilaudid Inj) 2 mg Q3H PRN IV 07/05/17 06:00 07/19/17 05:59 Glucose (Glucose 40% Gel) 15-30 GRAMS 15 GRAMS... UD PRN PO 07/04/17 14:30 08/03/17 14:29 Glucose (Glucose Chew Tab) 4-8 Tablets 4 Tabl... UD PRN PO 07/04/17 14:30 08/03/17 14:29 Dextrose (Dextrose 50% 50ML Syringe) 25-50ML OF 50% DW IV FOR... UD PRN IV 07/04/17 14:30 08/03/17 14:29 Glucagon (Glucagon Inj) 1 mg UD PRN SQ 07/04/17 14:30 08/03/17 14:29 Miscellaneous Information (Consult Glycemic Management Pharmacy) 1 ea UD PRN N/A 07/04/17 14:50 08/03/17 14:49 Insulin Aspart (novoLOG ASPART) SLIDING SCALE ACHS SC 07/05/17 08:00 08/04/17 07:59 07/05/17 18:04 3 UNITS Insulin Glargine (Lantus Solostar Pen) 27 units BID SC 07/05/17 09:00 08/04/17 08:59 07/05/17 08:49 27 UNITS Menthol (Nice Lio) 1 lio PRN PRN LIO 07/05/17 16:45 08/04/17 16:44 07/05/17 18:01 1 LIO
[2017-07-05 21:10] VITALS: BP 156/71; O2SAT 98
[2017-07-05] MEDS: AMLODIPINE BESYLATE 5 MG TAB PO SCH (21:14)
[2017-07-05] MEDS: DOCUSATE SODIUM/SENNA 50/8.6MG TAB PO SCH (21:40)
[2017-07-05] MEDS: DULOXETINE (CYMBALTA) 30 MG CAP PO SCH (21:40)
[2017-07-05 23:20] VITALS: BP 128/71; PULSE 116; TEMP 37.2; O2SAT 95
[2017-07-06] VITALS (7 sets, daily range): BP systolic 126–158; BP diastolic 63–72; PULSE 97–116; TEMP 36.8–37.3; O2SAT 83–100
[2017-07-06] MEDS: POLYETHYLENE (MIRALAX) 17 GM PACK PO SCH ×4 (05:02→23:31)
[2017-07-06] MEDS: HYDROCODONE/ACETAMIN 5/325MG TAB PO PRN ×2 (06:33→12:24)
[2017-07-06 08:23] LABS: BASO % 0.2 %; BASO ABS # 0.03 K/uL (0-0.2); EOS % 1.3 %; EOS ABS # 0.22 K/uL (0-0.5); HEMATOCRIT 25.2 % (37-47); HEMOGLOBIN 8.4 g/dL (12.0-16.0); LYMPH ABS # 1.36 K/uL (1.2-3.4); MEAN CELL VOLUME 81.3 fL (80-100); MEAN CORPUSCULAR HEMOGLOBIN 27.1 pg (25-34); MEAN CORPUSCULAR HGB CONC 33.3 g/dl (32-36); MEAN PLATELET VOLUME 9.4 fL (7.4-10.4); MONO % 13.8 %; MONO ABS # 2.33 K/uL (0.11-0.59); NEUT % 76.1 %; NEUT ABS # 12.88 K/uL (1.4-6.5); PLATELET COUNT 176 K/uL (130-400); RED CELL DISTRIBUTION WIDTH CV 17.2 % (11.5-14.5); RED CELL DISTRIBUTION WIDTH SD 51.2 fL (36.4-46.3); WHITE BLOOD COUNT 16.92 K/uL (4.8-10.8)
[2017-07-06] MEDS: INSULIN ASPART 100 UNITS/ML 3 ML PEN SC SCH ×4 (08:40→20:55)
[2017-07-06] MEDS: INSULIN GLARGINE SOLOSTAR 100 UNITS/ML 3 ML PEN SC SCH ×2 (08:42→21:31)
[2017-07-06] MEDS: ATORVASTATIN 10 MG TAB PO SCH (08:47)
[2017-07-06 08:52] LABS: CALCIUM 8.2 mg/dl (8.5-10.1); CREATININE 0.93 mg/dl (0.60-1.20); POTASSIUM 4.5 mmol/L (3.5-5.1)
--- NOTE | 2017-07-06 10:14 | Pharmacy Progress Note ---
Pharmacy Glycemic Short Note 2 Date of Service Jul 06, 2017. OUTPATIENT ANTIDIABETIC REGIMEN: * Lantus 27 units SQ BID * Metoformin 1,000mg PO BIDM * Humalog per parameters * CF = 30mg/dl/unit; CR per 1 unit for every 10g CHO consumed ASSESSMENT: * POD#2 s/p Lumbar spinal surgery. Pt with severe hyperglycemia pre-op, intra-op , and post op secondary to omitting basal insulin prior surgery, holding PO antidiabetic agents, and dexamethasone intraop. * Good glycemic control over the past 24 hours: BSGs 92, 163, 102, 162 Patient received a total of 78 units of SQ insulin on 07/05: * 54 units of basal (home dose) * 24 units of bolus * Fasting BSG of 217 is above goal. Of note, this was not a true fasting. I spoke with RN who confirmed that patient drank orange juice prior to BSG check. Fasting BSG was at goal yesterday and patient is on home basal dose, therefore no changes today. * Post-prandial BSGs are at/near goal. I anticipate improvement today since effect of dexamethasone has worn off, therefore I will only make changes to bolus parameters if they remain elevated today. * Patient is tolerating diet and Scr has improved -> resume metformin PLAN FOR INPATIENT GLYCEMIC CONTROL: * Resume metformin 1000 mg PO BID * Basal insulin - no change * Lantus 27 units SQ BID * Bolus insulin - no change * NovoLog per scale ACHS or Q6hrs while NPO * Goal Range: Low 110 mg/dL - High 140 mg/dL * Correction Factor: 15 mg/dL/unit * Nutritional / Prandial insulin per carb ratio of 1 unit per 5 grams CHO consumed PLAN FOR DISCHARGE: * A1c = 7% on 07/05/17 * No changes needed to outpatient regimen. No needs identified as patient: Performs self-care for management of diabetes Knows how to check her BSG Knows what to do for High/Low BS * Essential to maintain BSG <150 mg/dl post-operatively to help prevent post- op complications.
[2017-07-06] MEDS: METFORMIN HCL 500 MG TAB PO SCH ×2 (12:37→18:27)
--- NOTE | 2017-07-06 14:26 | Progress Note ---
Progress Note Date of Service Jul 06, 2017. Progress Note Patient's back pain is controlled. Leg symptoms are improved. On exam vital signs are stable. She is sitting in the chair at the bedside. His excellent strength testing. Assessment status post multilevel lumbar decompression fusion. Plan at this time will continue to advance her physical therapy. Monitor SOFIA output. Anticipate possible home tomorrow.
--- NOTE | 2017-07-06 18:24 | Progress Note ---
Medicine Progress Note Date & Time of Visit: Jul 06, 2017 at 18:21. Subjective Seen sitting up in bed, just finished her dinner Comfortable States she ambulated today, no problems Feeling better overall No chest pain shortness of breath palpitations dizziness nausea Denies other symptoms Objective Last 8 Hrs Date Time Temp Pulse Resp B/P (MAP) Pulse Ox O2 Delivery O2 Flow Rate FiO2 07/06/17 15:25 Room Air 07/06/17 15:00 37.2 97 18 126/66 (86) 92 Room Air 07/06/17 11:51 37.0 103 20 146/68 (94) 92 Room Air Physical Exam: General- oriented x 3, not in distress, speaks in sentences with no effort Neck- no JVD Lungs- clear breath sounds bilaterally, no rales wheezes Heart- regular rhythm; no murmur, normal rate Abdomen- normal bowel sounds, soft, nontender Extremities- no pretibial edema, no calf tenderness Neuro- alert, oriented x 3; no gross focal deficits Skin- warm & dry Laboratory Results: Last 24 Hours Test 07/05/17 20:44 07/06/17 06:14 07/06/17 08:07 07/06/17 12:00 Bedside Glucose 162 mg/dl 217 mg/dl 143 mg/dl White Blood Count 16.92 K/uL Red Blood Count 3.10 M/uL Hemoglobin 8.4 g/dL Hematocrit 25.2 % Mean Corpuscular Volume 81.3 fL Mean Corpuscular Hemoglobin 27.1 pg Mean Corpuscular Hemoglobin Concent 33.3 g/dl Platelet Count 176 K/uL Mean Platelet Volume 9.4 fL Neutrophils (%) (Auto) 76.1 % Lymphocytes (%) (Auto) 8.0 % Monocytes (%) (Auto) 13.8 % Eosinophils (%) (Auto) 1.3 % Basophils (%) (Auto) 0.2 % Neutrophils # (Auto) 12.88 K/uL Lymphocytes # (Auto) 1.36 K/uL Monocytes # (Auto) 2.33 K/uL Eosinophils # (Auto) 0.22 K/uL Basophils # (Auto) 0.03 K/uL RDW Standard Deviation 51.2 fL RDW Coefficient of Variation 17.2 % Immature Granulocyte % (Auto) 0.6 % Immature Granulocyte # (Auto) 0.10 K/uL Large Platelets 1+ Basophilic Stippling 1+ Sodium Level 133 mmol/L Potassium Level 4.5 mmol/L Chloride Level 102 mmol/L Carbon Dioxide Level 27 mmol/L Anion Gap 4.0 mmol/L Blood Urea Nitrogen 29 mg/dl Creatinine 0.93 mg/dl Est Creatinine Clear Calc Drug Dose 71.6 ml/min Estimated GFR () 74.7 Estimated GFR (Non- 64.5 BUN/Creatinine Ratio 31.3 Random Glucose 200 mg/dl Calcium Level 8.2 mg/dl Test 07/06/17 16:59 Bedside Glucose 133 mg/dl Assessment & Plan Patient is a 66-year-old female with a history of diabetes type 1, hypertension , dyslipidemia, presenting with Status post lumbar spine decompression by Dr. Ladd on July 04, 2017. Status post lumbar decompression surgery by Dr. Ladd Postop day #2 Remained stable Pain management and DVT prophylaxis per orthopedic service Hyperglycemia likely secondary to dexamethasone, Resolved Type 1 diabetes Usually on metformin 1000 mg twice daily and Lantus 27 units twice daily Insulin drip discontinued now on Lantus and ISS Blood glucose levels within acceptable range monitor Hypertension Usually takes losartan 100 mg daily, amlodipine 5 mg daily, hydrochlorothiazide 25 mg daily BP stable overall Amlodipine resumed Resume losartan this evening Hold hydrochlorothiazide to prevent dehydration Monitor Anemia, likely from Acute Blood Loss from Surgery already given 3 units pRBC Hg stable at ~8-9 Asymptomatic monitor transfuse as needed for hemoglobin less than 8 or if patient symptomatic We will follow the patient with you during their hospital stay. You can reach a member of the [facility] Hospitalist Team 25/10 via pager @ .Thank you for this consultation. Current Inpatient Medications: Current Inpatient Medications Medications (Trade) Dose Ordered Sig/Tamar Route Start Time Stop Time Status Last Admin Dose Admin Promethazine HCl 12.5 mg/Sodium Chloride 50.5 ml @ 202 mls/hr Q6H PRN IV 07/04/17 11:30 08/03/17 11:29 Ondansetron HCl (Zofran Inj) 4 mg Q6H PRN IV 07/04/17 11:30 08/03/17 11:29 Metoclopramide HCl (Reglan Inj) 10 mg Q6H PRN IV 07/04/17 11:30 08/03/17 11:29 Lorazepam (Ativan Tab) 0.5 mg Q8H PRN PO 07/04/17 11:30 08/03/17 11:29 07/06/17 08:48 0.5 MG Lorazepam 0.5 mg/ Syringe 0.25 ml @ 1 mls/min Q8H PRN IV 07/04/17 11:30 08/03/17 11:29 Pneumococcal Polysaccharide Vaccine 1 ea PRN PRN N/A 07/04/17 11:30 08/03/17 11:29 Influenza Virus Vacc Triv Types A&B 1 ea PRN PRN N/A 07/04/17 11:30 08/03/17 11:29 Polyethylene (Miralax Powder Packet) 17 gm Q6 PO 07/06/17 06:00 08/05/17 05:59 07/06/17 12:35 17 GM Bisacodyl (Dulcolax Supp) 10 mg DAILY PRN MD 07/04/17 11:30 08/03/17 11:29 Magnesium Hydroxide (Milk Of Magnesia Susp) 30 ml DAILY PRN PO 07/04/17 11:30 08/03/17 11:29 Hydromorphone HCl (Dilaudid Inj) 0.5 mg Q3H PRN IV 07/05/17 06:00 07/19/17 05:59 07/05/17 14:48 0.5 MG Acetaminophen/ Hydrocodone Bitart (Cumming 5/325 Tab) 1-2 tabs prn moder... Q4H PRN PO 07/05/17 06:00 07/19/17 05:59 07/06/17 12:24 2 TAB Acetaminophen (Tylenol Tab) 1,000 mg Q8H PRN PO 07/04/17 11:30 08/03/17 11:29 Acetaminophen 100 ml @ 400 mls/hr Q8H PRN IV 07/04/17 11:30 08/03/17 11:29 Naloxone HCl (Narcan Inj) 0.1 mg Q5M PRN IV 07/05/17 06:00 08/04/17 05:59 Senna/Docusate Sodium (Senokot S Tab) 2 tab HS PO 07/04/17 21:00 08/03/17 20:59 07/05/17 21:40 2 TAB Sodium Biphosphate/ Sodium Phosphate (Fleet Enema) 132 ml ONE PRN MD 07/04/17 11:30 08/03/17 11:29 Hydroxyzine HCl (Vistaril Tab) 25 mg Q8H PRN PO 07/04/17 11:30 08/03/17 11:29 Al Hydroxide/Mg Hydroxide (Maalox Susp) 30 ml Q6H PRN PO 07/04/17 11:30 08/03/17 11:29 Famotidine (Pepcid Tab) 20 mg Q12 PRN PO 07/04/17 11:30 08/03/17 11:29 Diphenhydramine HCl (Benadryl Cap) 25 mg Q6H PRN PO 07/04/17 11:30 08/03/17 11:29 Atorvastatin Calcium (Lipitor Tab) 10 mg QAM PO 07/05/17 09:00 08/04/17 08:59 07/06/17 08:47 10 MG Duloxetine HCl (Cymbalta Cap) 90 mg QPM PO 07/04/17 21:00 08/03/17 20:59 07/05/17 21:40 90 MG Hydromorphone HCl (Dilaudid Inj) 2 mg Q3H PRN IV 07/05/17 06:00 07/19/17 05:59 Glucose (Glucose 40% Gel) 15-30 GRAMS 15 GRAMS... UD PRN PO 07/04/17 14:30 08/03/17 14:29 Glucose (Glucose Chew Tab) 4-8 Tablets 4 Tabl... UD PRN PO 07/04/17 14:30 08/03/17 14:29 Dextrose (Dextrose 50% 50ML Syringe) 25-50ML OF 50% DW IV FOR... UD PRN IV 07/04/17 14:30 08/03/17 14:29 Glucagon (Glucagon Inj) 1 mg UD PRN SQ 07/04/17 14:30 08/03/17 14:29 Miscellaneous Information (Consult Glycemic Management Pharmacy) 1 ea UD PRN N/A 07/04/17 14:50 08/03/17 14:49 Insulin Aspart (novoLOG ASPART) SLIDING SCALE ACHS SC 07/05/17 08:00 08/04/17 07:59 07/06/17 12:44 6 UNITS Insulin Glargine (Lantus Solostar Pen) 27 units BID SC 07/05/17 09:00 08/04/17 08:59 07/06/17 08:42 27 UNITS Menthol (Nice Lio) 1 lio PRN PRN LIO 07/05/17 16:45 08/04/17 16:44 07/05/17 18:01 1 LIO Amlodipine Besylate (Norvasc Tab) 5 mg HS PO 07/05/17 21:00 08/04/17 20:59 07/05/17 21:14 5 MG Losartan Potassium (coZAAR TAB) 50 mg HS PO 07/06/17 21:00 08/05/17 20:59 Metformin HCl (Glucophage Tab) 1,000 mg BIDM PO 07/06/17 11:00 08/05/17 10:59 07/06/17 12:37 1,000 MG
[2017-07-06] MEDS ORDERED: LOSARTAN POTASSIUM 50 MG TAB PO SCH (21:00)
[2017-07-06] MEDS: DULOXETINE (CYMBALTA) 30 MG CAP PO SCH (21:27)
[2017-07-06] MEDS: DOCUSATE SODIUM/SENNA 50/8.6MG TAB PO SCH (21:27)
[2017-07-06] MEDS: AMLODIPINE BESYLATE 5 MG TAB PO SCH (21:28)
[2017-07-07] MEDS: HYDROCODONE/ACETAMIN 5/325MG TAB PO PRN ×2 (04:09→08:27)
[2017-07-07] MEDS: POLYETHYLENE (MIRALAX) 17 GM PACK PO SCH (05:35)
[2017-07-07 06:42] VITALS: BP 135/73; PULSE 101; TEMP 37.2; O2SAT 91
[2017-07-07] MEDS: ATORVASTATIN 10 MG TAB PO SCH (07:35)
[2017-07-07] MEDS: METFORMIN HCL 500 MG TAB PO SCH (07:35)
[2017-07-07] MEDS: INSULIN ASPART 100 UNITS/ML 3 ML PEN SC SCH (07:46)
[2017-07-07] MEDS: INSULIN GLARGINE SOLOSTAR 100 UNITS/ML 3 ML PEN SC SCH (07:47)
--- NOTE | 2017-07-07 09:25 | Pharmacy Progress Note ---
Pharmacy Glycemic Short Note 2 Date of Service Jul 07, 2017. OUTPATIENT ANTIDIABETIC REGIMEN: * Lantus 27 units SQ BID * Metoformin 1,000mg PO BIDM * Humalog per parameters * CF = 30mg/dl/unit; CR per 1 unit for every 10g CHO consumed ASSESSMENT: * POD#3 s/p Lumbar spinal surgery. Pt with severe hyperglycemia pre-op, intra-op , and post op secondary to omitting basal insulin prior surgery, holding PO antidiabetic agents, and dexamethasone intraop. * Good glycemic control over the past 24 hours: BSGs 217 (after OJ)-[id number] Patient received a total of 76 units of SQ insulin on 07/06: * 54 units of basal (home dose) * 22 units of bolus * Fasting BSG of 123 is within goal. Continue home dose. * Post-prandial BSGs are at/near goal. The Novolog parameters are still tighter than home parameters. Not certain how long effects from dexamethasone will last but it appears that patient may have some insulin resistance at baseline. This effects may be prolonged. Loosen Novolog as appropriate. PLAN FOR INPATIENT GLYCEMIC CONTROL: * Metformin 1000 mg PO BID * Basal insulin - no change * Lantus 27 units SQ BID * Bolus insulin - no change * NovoLog per scale ACHS or Q6hrs while NPO * Goal Range: Low 110 mg/dL - High 140 mg/dL * Correction Factor: 15 mg/dL/unit * Nutritional / Prandial insulin per carb ratio of 1 unit per 5 grams CHO consumed PLAN FOR DISCHARGE: * A1c = 7% on 07/05/17 * No changes needed to outpatient regimen. No needs identified as patient: Performs self-care for management of diabetes Knows how to check her BSG Knows what to do for High/Low BS * Essential to maintain BSG <150 mg/dl post-operatively to help prevent post- op complications.
[2017-07-07 09:30] VITALS: BP 135/73; PULSE 101; TEMP 37.2; O2SAT 91
[2017-07-07 09:52] LABS: HEMATOCRIT 24.3 % (37-47)
--- NOTE | 2017-07-07 10:27 | Discharge Summary ---
Orthopedic Discharge Summary Admission Date/Reason Jul 04, 2017 at 07:30 Spinal Stenosis. Discharge Date/Disposition Jul 07, 2017 Home with services Diagnosis Principal Diagnosis: Lumbar spinal stenosis Admission Physical Exam As per Admitting History & Physical. Hospital Course Patient underwent multilevel lumbar decompression and fusion tolerated this well was taken to the orthopedic floor postoperatively. Postop day #1 she was up and amatory progressed through the week. Leg symptoms improved. Back pain controlled. SOFIA drain decreasing appropriately. Subsequently was discharged home with home health. Discharge orders and instructions found in the chart for further review. Discharge Instructions Please refer to the electronic Patient Visit Report (Discharge Instructions) for additional information.
== END 2017-07-07 10:35 | disposition home health service (06) | DRG 454 ==
LOC: C.ACU 06:14 → C.3E 07:30 → ENRESERV 12:20
PROVIDERS: ADMIT Orthopaedic Surgery Orthopaedic Surgery of the Spine; ATTEND Orthopaedic Surgery Orthopaedic Surgery of the Spine
PROC: 0SG3071 Fusion of Lumbosacral Joint with Autologous Tissue Substitute, Posterior Approach, Posterior Column, Open Approach (ICD-10-PCS; principal; 2017-07-04 07:45)
PROC: 0SG00AJ Fusion of Lumbar Vertebral Joint with Interbody Fusion Device, Posterior Approach, Anterior Column, Open Approach (ICD-10-PCS; principal; 2017-07-04 07:45)
PROC: 0SG707Z Fusion of Right Sacroiliac Joint with Autologous Tissue Substitute, Open Approach (ICD-10-PCS; principal; 2017-07-04 07:45)
PROC: 0ST20ZZ Resection of Lumbar Vertebral Disc, Open Approach (ICD-10-PCS; principal; 2017-07-04 07:45)
PROC: 0SG1071 Fusion of 2 or more Lumbar Vertebral Joints with Autologous Tissue Substitute, Posterior Approach, Posterior Column, Open Approach (ICD-10-PCS; principal; 2017-07-04 07:45)
PROC: 0SG807Z Fusion of Left Sacroiliac Joint with Autologous Tissue Substitute, Open Approach (ICD-10-PCS; principal; 2017-07-04 07:45)
DX: M48.061 Spinal stenosis, lumbar region without neurogenic claudication (principal); D62 Acute posthemorrhagic anemia; E10.65 Type 1 diabetes mellitus with hyperglycemia; T38.0X5A Adverse effect of glucocorticoids and synthetic analogues, initial encounter; I10 Essential (primary) hypertension; E10.9 Type 1 diabetes mellitus without complications; E78.5 Hyperlipidemia, unspecified; G47.33 Obstructive sleep apnea (adult) (pediatric); Z79.899 Other long term (current) drug therapy; Z88.1 Allergy status to other antibiotic agents; Z88.5 Allergy status to narcotic agent; Z88.8 Allergy status to other drugs, medicaments and biological substances